=== PATIENT | female | born 1950 | race Two or more races ===

== ENCOUNTER 2017-03-17 23:17 | Emergency (ER) | payer SELFPAY ==
[~2017-03-17] VITALS: Ht 157.5 cm; Wt 73.0 kg
[~2017-03-17 23:17] MED LIST: ASPI-664 PO; ATOR40TA68 PO; BACTDS PO; CEPH-443 PO; IBUP-1542 PO; LEVO100T87 PO; METF500T PO; OLME40TA14 PO
[2017-03-17 23:25] VITALS: Ht 157.5 cm; Wt 73.0 kg
== END 2017-03-18 00:01 | disposition left against medical advice (07) ==
LOC: FTE 23:17
DX: Z53.21 Procedure and treatment not carried out due to patient leaving prior to being seen by health care provider (principal)

== ENCOUNTER 2017-03-23 14:29 | Emergency (ER) | END 2017-03-23 15:08 | disposition left against medical advice (07) ==

== ENCOUNTER 2018-05-19 17:08 | Observation (INO) | payer OTHER ==
[~2018-05-19] VITALS: Ht 152.4 cm; Wt 72.0 kg
[~2018-05-19 17:08] MED LIST changes: +ASPI-1046 PO; -ASPI-664 PO; +LEVO100T8 PO; -LEVO100T87 PO; +OLME40TA13 PO; -OLME40TA14 PO
--- NOTE | 2018-05-19 23:56 | ERD ---
ER Documentation Chief Complaint Chief Complaint MD referral: mid chest heaviness, mild SOB, L scalpular pain. HPI This is a 67-year-old female who is here for chest pain and shortness of breath. Patient saw her primary care physician was sent here because she is having gradual worsening over the past month of dyspnea on exertion as well as orthopnea and she is also having some mid chest heaviness with pain in her left shoulder blade off and on over the past couple of days. No pain now. Patient denies having diabetes or hypertension and has been in relatively good health as of late ROS All systems reviewed and are negative except as per history of present illness. Medications Home Meds Active Scripts Sulfamethoxazole-Trimethoprim* (Bactrim* DS) 800-160 Mg Tab, 1 TAB PO BID for 10 Days, TAB Prov:ELHAM ROLLINS MD 11/27/14 Cephalexin* (Keflex*) 500 Mg Capsule, 500 MG PO QID for 10 Days, CAP Prov:ELHAM ROLLINS MD 11/27/14 Ibuprofen* (Motrin*) 600 Mg Tab, 600 MG PO Q6, #14 TAB Prov:ELHAM ROLLINS MD 11/27/14 Reported Medications Atorvastatin* (Atorvastatin*) 40 Mg Tablet, 40 MG PO HS, TAB 05/29/14 Metformin Hcl (Glucophage) 500 Mg Tablet, 850 MG PO BID, TAB 03/31/14 Olmesartan Medoxomil (Benicar) 40 Mg Tablet, 40 MG PO DAILY, TAB 03/30/14 Aspirin* (Aspirin* (EC)) 81 Mg Tablet.dr, 81 MG PO DAILY, TAB 03/30/14 Levothyroxine Sodium* (Levothyroxine Sodium*) 100 Mcg Tablet, 100 MCG PO DAILY, TAB 03/30/14 Allergies Allergies: Coded Allergies: No Known Allergy (Unverified , 03/17/17) PMhx/Soc History of Surgery: No Anesthesia Reaction: No Hx Neurological Disorder: No Hx Respiratory Disorders: No Hx Cardiac Disorders: Yes (HTN;Heart Murmur;Hyperlipidemia) Hx Psychiatric Problems: No Hx Miscellaneous Medical Probl: Yes (Thyroid Issues;DM) Hx Alcohol Use: No Hx Substance Use: No Hx Tobacco Use: No FmHx Family History: No coronary disease Physical Exam Vitals Vital Signs Date Temp Pulse Resp B/P (MAP) Pulse Ox O2 O2 Flow FiO2 Time Delivery Rate 05/19/18 67 16 132/78 96 Room Air 23:44 (96) 05/19/18 97.4 67 22 143/72 97 23:20 (95) 05/19/18 97.8 61 22 157/72 95 17:30 (100) Physical Exam Const: Well-developed, well-nourished Head: Atraumatic, normocephalic Eyes: Normal Conjunctiva, PERRLA, EOMI, normal sclera, no nystagmus ENT: Normal External Ears, Nose and Mouth, moist mucus membranes. Neck: Full range of motion. No meningismus, no lymphadenopathy. Resp: Some mild bibasilar rhonchi] Cardio: Regular rate and rhythm, no murmurs, S1 S2 present Abd: Soft, non tender x 4, non distended. Normal bowel sounds, no guarding or rebound, no pulsitile abdominal masses or bruits Skin: No petechiae or rashes, no ecchymosis , no maculopapular rash Back: No midline or flank tenderness Ext: No cyanosis, or edema, FROM x 4, normal inspection, neurovascularly intact x 4 Neur: Awake and alert, STR 5/5 x 4, sensation intact x 4, no focal findings, cerebellum intact Psych: Normal Mood and Affect Result Diagram: 05/19/18705/19/187 Results 24 hrs Laboratory Tests Test 05/19/18 00:08 White Blood Count 7.4 10^3/ul Red Blood Count 4.58 10^6/ul Hemoglobin 14.3 g/dl Hematocrit 42.7 % Mean Corpuscular Volume 93.2 fl Mean Corpuscular Hemoglobin 31.2 pg Mean Corpuscular Hemoglobin Concent 33.5 g/dl Red Cell Distribution Width 13.0 % Platelet Count 221 10^3/UL Mean Platelet Volume 10.1 fl Immature Granulocytes % 0.500 % Neutrophils % 54.5 % Lymphocytes % 33.3 % Monocytes % 9.9 % Eosinophils % 1.4 % Basophils % 0.4 % Nucleated Red Blood Cells % 0.0 /100WBC Immature Granulocytes # 0.040 10^3/ul Neutrophils # 4.0 10^3/ul Lymphocytes # 2.5 10^3/ul Monocytes # 0.7 10^3/ul Eosinophils # 0.1 10^3/ul Basophils # 0.0 10^3/ul Nucleated Red Blood Cells # 0.0 10^3/ul Sodium Level 142 mmol/L Potassium Level 4.0 mmol/L Chloride Level 104 mmol/L Carbon Dioxide Level 29 mmol/L Anion Gap 9 Blood Urea Nitrogen 12 mg/dl Creatinine 0.72 mg/dl Est Glomerular Filtrat Rate mL/min > 60 mL/min Glucose Level 111 mg/dl Calcium Level 9.3 mg/dl Total Bilirubin 0.3 mg/dl Direct Bilirubin 0.00 mg/dl Indirect Bilirubin 0.3 mg/dl Aspartate Amino Transf (AST/SGOT) 53 IU/L Alanine Aminotransferase (ALT/SGPT) 41 IU/L Alkaline Phosphatase 161 IU/L Troponin I < 0.012 ng/ml B-Type Natriuretic Peptide 298 PG/ML Total Protein 8.0 g/dl Albumin 4.3 g/dl Globulin 3.70 g/dl Albumin/Globulin Ratio 1.16 Procedures/MDM MR #: [id number] DOS: 05/19/18 2355 Ordering MD: MANUEL VALLADARES DO Location: E/R Room/Bed: PROCEDURE: XR Chest. CLINICAL INDICATION: Chest pain. TECHNIQUE: Single frontal view of the chest. COMPARISON: Chest pain. FINDINGS: Mild cardiomegaly. Mild atelectasis at the left lung base is decreased over interval. The lungs are otherwise clear. No signs of pleural fluid or pneumot horax are seen. The osseous structures and soft tissues are unremarkable. IMPRESSION: 1. Decreased mild atelectasis at the left lung base. 2. Otherwise, the evidence for active cardiopulmonary disease. RPTAT: UU Physician Kenny Date Time Electronically viewed and signed by Physician Kenny on 05/20/2018 00:47 RS/ CC: MANUEL VALLADARES DO [id number] EKG: Rate/Rhythm: Normal Sinus Rhythm,NL intervals QRS, ST, QT: NORMAL ID, QRS, QT] Impression: NORMAL EKG Cardiac Admit MDM: Patient's symptoms are concerning for cardiac cause will requ mario inpatient workup and continuous monitoring. Further w/u for ischemia, arrhythmia, PE or dissection will be deferred to the inpatient team. Departure Diagnosis: Primary Impression: Shortness of breath Additional Impression: Chest pain Chest pain type: unspecified Qualified Codes: R07.9 - Chest pain, unspecified Condition: Stable MANUEL VALLADARES DO May 19, 2018 23:56
[2018-05-20] VITALS (9 sets, daily range): BP systolic 104–154; BP diastolic 53–82; PULSE 55–63; RESP 18–20; Ht 152.4 cm; Wt 72.0 kg
[2018-05-20] MEDS ORDERED: ACETAMINOPHEN 325 MG TAB PO PRN ×2 (02:00→05:00)
[2018-05-20] MEDS ORDERED: ONDANSETRON 4 MG INJ IV PRN ×2 (02:00→05:00)
[2018-05-20] MEDS ORDERED: NACL 0.9% 3 ML SYG IV SCH (05:00)
[2018-05-20] MEDS ORDERED: NITROGLYCERIN (SL) 0.4 MG TAB SL PRN (05:00)
[2018-05-20] MEDS ORDERED: ALBUTEROL/IPRATROPIUM (NEB) 3 ML AMP HHN PRN (05:00)
[2018-05-20] MEDS ORDERED: GLUCAGON 1 MG INJ IM PRN (06:00)
[2018-05-20] MEDS ORDERED: DEXTROSE 50% 50 ML SYRINGE IV PRN ×2 (06:00)
[2018-05-20] MEDS ORDERED: GLUCOSE GEL 15 GRAM TUBE BUCCAL PRN (06:00)
[2018-05-20] MEDS ORDERED: GLUCOSE GEL 15 GRAM TUBE PO PRN ×2 (06:00)
--- NOTE | 2018-05-20 06:20 | HP ---
Date/Time of Note Date/Time of Note DATE: 05/20/18 TIME: 06:15 Assessment/Plan VTE Prophylaxis Pharmacological prophylaxis: heparin Lines/Catheters IV Catheter Type (from Nrsg): Saline Lock Assessment/Plan Assessment/Plan 1. Chest pain/shortness of breath: Rule out ACS -Supplemental oxygen, aspirin, as needed nitro and morphine. Beta-milly if he art rate allows -2D echo and cardiology consult -Trend troponin 2. Hypertension: Adjust BP meds as needed 3. Type II diabetes: Continue metformin 4. Hypothyroidism: Check TSH. Continue Synthroid 5. Dyslipidemia: Continue statin Result Diagram: 05/20/18 0520 05/19/18 0008 Results 24hrs Laboratory Tests Test 05/20/18 02:52 05/20/18 05:20 Bedside Glucose 114 White Blood Count 7.3 Red Blood Count 4.55 Hemoglobin 14.1 Hematocrit 42.0 Mean Corpuscular Volume 92.3 Mean Corpuscular Hemoglobin 31.0 Mean Corpuscular Hemoglobin Concent 33.6 Red Cell Distribution Width 13.1 Platelet Count 219 Mean Platelet Volume 10.6 H Immature Granulocytes % 0.500 H Neutrophils % 55.3 Lymphocytes % 34.3 Monocytes % 7.6 Eosinophils % 1.8 Basophils % 0.5 Nucleated Red Blood Cells % 0.0 Immature Granulocytes # 0.040 H Neutrophils # 4.1 Lymphocytes # 2.5 Monocytes # 0.6 Eosinophils # 0.1 Basophils # 0.0 Nucleated Red Blood Cells # 0.0 HPI/ROS Admit Date/Time Admit Date/Time May 20, 2018 at 01:43 Hx of Present Illness This is a 61-year-old female with a history of hypertension, diabetes, dyslipidemia, hypothyroidism, ?Redding's palsy. Patient presents the ER for evalu ation of shortness of breath and chest pain. Symptom has been progressively getting worse for the past several weeks. Chest pain described as tightness/pressure like. Shortness of breath is exertional for the most part. She was evaluated by PCP who instructed her to go to the ER. Lung presented to ER, vitals were stable. First troponin is negative. EKG without ST-T wave abnormalities. PMH/Family/Social Past Medical History Medications Current Medications Ondansetron HCl (Zofran Inj) 4 mg ER BRIDGE PRN IV NAUSEA/VOMITING; Start 05/20/18 at 02:00; Stop 05/21/18 at 01:59 Acetaminophen (Tylenol Tab) 650 mg ER BRIDGE PRN PO .MILD PAIN 1-3 OR TEMP; Start 05/20/18 at 02:00; Stop 05/21/18 at 01:59 IV Flush (NS 3 ml) 3 ml PER PROTOCOL IV ; Start 05/20/18 at 05:00 Ondansetron HCl (Zofran Inj) 4 mg Q6H PRN IV NAUSEA/VOMITING; Start 05/20/18 at 05:00 Nitroglycerin (Nitroglycerin (Sl Tab) 0.4 Mg) 1 tab Q5M PRN SL .CHEST PAIN; Start 05/20/18 at 05:00 Acetaminophen (Tylenol Tab) 650 mg Q6H PRN PO .PAIN 1-3 OR TEMP; Start 05/20/18 at 05:00 Heparin Sodium (Porcine) (Heparin (5000 Units/1ml)) 5,000 unit Q12 SC ; Start 05/20/18 at 09:00 Albuterol/ Ipratropium (Duoneb) 3 ml Q2H RESP THERAPY PRN HHN SHORTNESS OF BREATH; Start 05/20/18 at 05:00 Aspirin (Halfprin) 81 mg DAILY PO ; Start 05/20/18 at 09:00 Atorvastatin Calcium (Lipitor) 40 mg HS PO ; Start 05/20/18 at 21:00 Levothyroxine Sodium (Synthroid) 100 mcg AC BREAKFAST PO ; Start 05/20/18 at 07:00 Metformin HCl (Glucophage) 500 mg BID WITH MEALS PO ; Start 05/20/18 at 08:00 Trimethoprim/ Sulfamethoxazole (Bactrim (Ds)) 1 tab BID PO ; Start 05/20/18 at 09:00 Losartan Potassium (Cozaar) 100 mg DAILY PO ; Start 05/20/18 at 09:00 Miscellaneous Information 1 ea NOTE XX ; Start 05/20/18 at 06:00 Glucose (Glutose) 15 gm Q15M PRN PO DECREASED GLUCOSE; Start 05/20/18 at 06:00 Glucose (Glutose) 22.5 gm Q15M PRN PO DECREASED GLUCOSE; Start 05/20/18 at 06:00 Dextrose (D50w Syringe) 25 ml Q15M PRN IV DECREASED GLUCOSE; Start 05/20/18 at 06:00 Dextrose (D50w Syringe) 50 ml Q15M PRN IV DECREASED GLUCOSE; Start 05/20/18 at 06:00 Glucagon (Glucagen) 1 mg Q15M PRN IM DECREASED GLUCOSE; Start 05/20/18 at 06:00 Glucose (Glutose) 15 gm Q15M PRN BUCCAL DECREASED GLUCOSE; Start 05/20/18 at 06:00 Coded Allergies: No Known Allergy (Unverified , 03/17/17) Social History Smoking Status: Never smoker Exam/Review of Systems Vital Signs Vitals Vital Signs Date Temp Pulse Resp B/P (MAP) Pulse Ox O2 O2 Flow FiO2 Time Delivery Rate 05/20/18 55 04:00 05/20/18 97.6 20 154/82 91 04:00 (106) 05/19/18 Room Air 23:44 Exam Exam Past Surgical History Past Surgical Hx: other (see hpi) Family History Significant Family History: no pertinent family hx Social History Alcohol Use: other Smoking Status: Unknown if ever smoked Drug Use: none, other Exam Constitutional: other (no acute distress) Head: normocephalic, atraumatic Eyes: PERRL Respiratory: clear to auscultation Cardiovascular: regular rate and rhythm Gastrointestinal: soft DIMPLE LOMAS MD May 20, 2018 06:20
[2018-05-20] MEDS: LEVOTHYROXINE 100 MCG TAB PO SCH (07:01)
[2018-05-20] MEDS ORDERED: metFORMIN 500 MG TAB PO SCH (08:00)
[2018-05-20] MEDS ORDERED: TRIMETHOPRIM/SULFAMETHOX (DS) TAB PO SCH (09:00)
[2018-05-20] MEDS ORDERED: LISINOPRIL 10 MG TAB PO SCH (09:00)
[2018-05-20] MEDS: LOSARTAN 50 MG TAB PO SCH (09:30)
[2018-05-20] MEDS: ASPIRIN (EC) 81 MG TAB PO SCH (09:31)
[2018-05-20] MEDS: HEPARIN 5,000 UNIT/1 ML VIAL SC SCH ×2 (09:37→20:26)
--- NOTE | 2018-05-20 15:54 | PN ---
Date/Time of Note Date/Time of Note DATE: 05/20/18 TIME: 15:53 Assessment/Plan VTE Prophylaxis Risk score (from Nsg)>0 risk: 2 SCD applied (from Nsg): Yes SCD contraindicated: low risk/ambulating Pharmacological prophylaxis: LMWH Lines/Catheters IV Catheter Type (from Nrsg): Saline Lock Assessment/Plan Hospital Course Hospitalist coverage A/P 1. Chest pain ro ACS. Consider stress test tomorrow 2. Type 2 diabetes 3. Hypertension 4. Dyslipidemia 5. Abnl EKG/ poor R wave progression through anteroseptal leads Subjective events noted Objective: Sinus rhythm Physical exam No pallor JVD adenopathy Regular Clear nontender Bs+ nt nd no RRG No edema/redness Result Diagram: 05/20/1851905/20/18 0520 Results 24hrs Laboratory Tests Test 05/20/18 02:52 05/20/18 05:20 05/20/18 10:23 Bedside Glucose 114 White Blood Count 7.3 Red Blood Count 4.55 Hemoglobin 14.1 Hematocrit 42.0 Mean Corpuscular Volume 92.3 Mean Corpuscular Hemoglobin 31.0 Mean Corpuscular Hemoglobin Concent 33.6 Red Cell Distribution Width 13.1 Platelet Count 219 Mean Platelet Volume 10.6 H Immature Granulocytes % 0.500 H Neutrophils % 55.3 Lymphocytes % 34.3 Monocytes % 7.6 Eosinophils % 1.8 Basophils % 0.5 Nucleated Red Blood Cells % 0.0 Immature Granulocytes # 0.040 H Neutrophils # 4.1 Lymphocytes # 2.5 Monocytes # 0.6 Eosinophils # 0.1 Basophils # 0.0 Nucleated Red Blood Cells # 0.0 Sodium Level 143 Potassium Level 4.1 Chloride Level 104 Carbon Dioxide Level 29 Anion Gap 10 Blood Urea Nitrogen 10 Creatinine 0.65 Est Glomerular Filtrat Rate mL/min > 60 Glucose Level 102 Hemoglobin A1c 6.1 H Calcium Level 8.9 Magnesium Level 2.1 Total Bilirubin 0.2 Direct Bilirubin 0.00 Indirect Bilirubin 0.2 Aspartate Amino Transf (AST/SGOT) 54 H Alanine Aminotransferase (ALT/SGPT) 43 Alkaline Phosphatase 147 H Creatine Kinase 68 69 Creatine Kinase Index 1.3 1.1 Creatinine Kinase MB (Mass) 0.88 0.76 Troponin I 0.013 < 0.012 Total Protein 7.8 Albumin 4.1 Globulin 3.70 H Albumin/Globulin Ratio 1.10 Triglycerides Level 129 Cholesterol Level 197 LDL Cholesterol, Calculated 117 HDL Cholesterol 54 Cholesterol/HDL Ratio 3.6 Thyroid Stimulating Hormone (TSH) 2.690 Exam/Review of Systems Exam Vitals Vital Signs Date Temp Pulse Resp B/P (MAP) Pulse Ox O2 O2 Flow FiO2 Time Delivery Rate 05/20/18 98.8 55 18 105/53 95 Room Air 15:22 (70) Intake and Output 05/19/18 05/19/18 05/20/18 1515:00 23:00 07:00 IntakeIntake Total 240 ml BalanceBalance 240 ml Results Results 24hrs Laboratory Tests Test 05/20/18 02:52 05/20/18 05:20 05/20/18 10:23 Bedside Glucose 114 White Blood Count 7.3 Red Blood Count 4.55 Hemoglobin 14.1 Hematocrit 42.0 Mean Corpuscular Volume 92.3 Mean Corpuscular Hemoglobin 31.0 Mean Corpuscular Hemoglobin Concent 33.6 Red Cell Distribution Width 13.1 Platelet Count 219 Mean Platelet Volume 10.6 H Immature Granulocytes % 0.500 H Neutrophils % 55.3 Lymphocytes % 34.3 Monocytes % 7.6 Eosinophils % 1.8 Basophils % 0.5 Nucleated Red Blood Cells % 0.0 Immature Granulocytes # 0.040 H Neutrophils # 4.1 Lymphocytes # 2.5 Monocytes # 0.6 Eosinophils # 0.1 Basophils # 0.0 Nucleated Red Blood Cells # 0.0 Sodium Level 143 Potassium Level 4.1 Chloride Level 104 Carbon Dioxide Level 29 Anion Gap 10 Blood Urea Nitrogen 10 Creatinine 0.65 Est Glomerular Filtrat Rate mL/min > 60 Glucose Level 102 Hemoglobin A1c 6.1 H Calcium Level 8.9 Magnesium Level 2.1 Total Bilirubin 0.2 Direct Bilirubin 0.00 Indirect Bilirubin 0.2 Aspartate Amino Transf (AST/SGOT) 54 H Alanine Aminotransferase (ALT/SGPT) 43 Alkaline Phosphatase 147 H Creatine Kinase 68 69 Creatine Kinase Index 1.3 1.1 Creatinine Kinase MB (Mass) 0.88 0.76 Troponin I 0.013 < 0.012 Total Protein 7.8 Albumin 4.1 Globulin 3.70 H Albumin/Globulin Ratio 1.10 Triglycerides Level 129 Cholesterol Level 197 LDL Cholesterol, Calculated 117 HDL Cholesterol 54 Cholesterol/HDL Ratio 3.6 Thyroid Stimulating Hormone (TSH) 2.690 Medications Medication Current Medications Ondansetron HCl (Zofran Inj) 4 mg ER BRIDGE PRN IV NAUSEA/VOMITING; Start 05/20/18 at 02:00; Stop 05/21/18 at 01:59 Acetaminophen (Tylenol Tab) 650 mg ER BRIDGE PRN PO .MILD PAIN 1-3 OR TEMP; Start 05/20/18 at 02:00; Stop 05/21/18 at 01:59 IV Flush (NS 3 ml) 3 ml PER PROTOCOL IV ; Start 05/20/18 at 05:00 Ondansetron HCl (Zofran Inj) 4 mg Q6H PRN IV NAUSEA/VOMITING; Start 05/20/18 at 05:00 Nitroglycerin (Nitroglycerin (Sl Tab) 0.4 Mg) 1 tab Q5M PRN SL .CHEST PAIN; Start 05/20/18 at 05:00 Acetaminophen (Tylenol Tab) 650 mg Q6H PRN PO .PAIN 1-3 OR TEMP; Start 05/20/18 at 05:00 Heparin Sodium (Porcine) (Heparin (5000 Units/1ml)) 5,000 unit Q12 SC Last administered on 05/20/18at 09:37; Admin Dose 5,000 UNIT; Start 05/20/18 at 09:00 Albuterol/ Ipratropium (Duoneb) 3 ml Q2H RESP THERAPY PRN HHN SHORTNESS OF BREATH; Start 05/20/18 at 05:00 Aspirin (Halfprin) 81 mg DAILY PO Last administered on 05/20/18at 09:31; Admin Dose 81 MG; Start 05/20/18 at 09:00 Atorvastatin Calcium (Lipitor) 40 mg HS PO ; Start 05/20/18 at 21:00 Levothyroxine Sodium (Synthroid) 100 mcg AC BREAKFAST PO Last administered on 05/20/18at 07:01; Admin Dose 100 MCG; Start 05/20/18 at 07:00 Losartan Potassium (Cozaar) 100 mg DAILY PO Last administered on 05/20/18at 09:30; Admin Dose 100 MG; Start 05/20/18 at 09:00 Miscellaneous Information 1 ea NOTE XX ; Start 05/20/18 at 06:00 Glucose (Glutose) 15 gm Q15M PRN PO DECREASED GLUCOSE; Start 05/20/18 at 06:00 Glucose (Glutose) 22.5 gm Q15M PRN PO DECREASED GLUCOSE; Start 05/20/18 at 06:00 Dextrose (D50w Syringe) 25 ml Q15M PRN IV DECREASED GLUCOSE; Start 05/20/18 at 06:00 Dextrose (D50w Syringe) 50 ml Q15M PRN IV DECREASED GLUCOSE; Start 05/20/18 at 06:00 Glucagon (Glucagen) 1 mg Q15M PRN IM DECREASED GLUCOSE; Start 05/20/18 at 06:00 Glucose (Glutose) 15 gm Q15M PRN BUCCAL DECREASED GLUCOSE; Start 05/20/18 at 06:00 DUC MILLS MD May 20, 2018 15:54
--- NOTE | 2018-05-20 19:02 | RADRPT ---
Echocardiogram Report Patient Name: MEENAKSHI MICHAUDPatient ID: [id number] : 1950 (67y 6m)Study Date: 05/20/2018 8:59:25 AM Gender: FAccession #: [id number] Tech: Shaggy Nunez [facility] Location: 603-A Ref.Physician: DIMPLE LOMAS Height(Cm): BSA: Weight(Kg): Quality: AdequateAccount #: Procedures: Echocardiographic Report: Transthoracic echocardiogram with complete 2D, M-Mode, and doppler examination. Indications: Congestive Heart Failure. Measurements: 2D/M Mode Doppler Measurement Value Normal Range Measurement Value Normal Range LVIDd 2D 3.7 [ 3.8 - 5.2 ] cm AV Peak David 1.4 [ 100.0 - 170.0 ] cm/sec LVIDs 2D 2.5 [ 2.2 - 3.5 ] cm AV Peak PG 7.0 [ 2.0 - 9.0 ] mmHg LVPWd 2D 1.6 [ 0.6 - 0.9 ] cm LVOT Peak David 1.3 [ 70.0 - 110.0 ] cm/sec IVSd 2D 1.6 [ 0.6 - 0.9 ] cm LVOT Peak PG 6.0 [ 2.0 - 6.0 ] mmHg IVS/LVPW 2D 1.0 ratio MV E Peak David 0.9 [ 60.0 - 130.0 ] cm/sec AoR Diam 2D 2.3 [ 2.3 - 3.1 ] cm MV A Peak David 1.8 [ 100.0 - 120.0 ] cm/sec LA/Ao 2D 1 ratio MV E/A 0.5 [ 0.8 - 1.5 ] ratio LA Dimen 2D 3.4 [ 2.7 - 3.8 ] cm MV Decel Time 106 [ 104 - 258 ] msec Lat E` David 0.2 [ 10.0 - 15.0 ] cm/sec Med E` David 0.1 cm/sec MV E/A 0.5 [ 0.8 - 1.5 ] ratio RA Pressure 3.0 mmHg Findings: Left Ventricle: Normal left ventricular systolic function. Normal left ventricular cavity size. Moderate concentric left ventricular hypertrophy. Ejection fraction is visually estimated at 60-65 %. Tissue Doppler/Mitral Doppler indices are consistent with pseudonormalization with mildly elevated left atrial pressure (Stage II diastolic dysfunction). Right Ventricle: Normal right ventricular size. Normal right ventricular systolic function. Left Atrium: The left atrium is normal in size. Right Atrium: The right atrium is normal in size. Mitral Valve: Moderate mitral leaflet calcification. Moderate mitral annular calcification. Mild mitral valve regurgitation. Mild mitral stenosis. Mitral valve Max Velocity 2.00 m/sec. MaxPG 16.00 mmHg. MeanPG 5.00 mmHg. Aortic Valve: No significant aortic stenosis or insufficiency. Aortic cusps appear mildly calcified. Tricuspid Valve: Normal appearance of the tricuspid valve. Unable to obtain RVSP due to minimal presence of tricuspid regurgitation. Pericardium: Normal pericardium with no significant pericardial effusion. Aorta: Normal aortic root. IVC: Normal size and normal respiratory collapse consistent with normal right atrial pressure. Conclusions: Normal left ventricular systolic function. Normal left ventricular cavity size. Moderate concentric left ventricular hypertrophy. Ejection fraction is visually estimated at 60-65 %. Tissue Doppler/Mitral Doppler indices are consistent with pseudonormalization with mildly elevated left atrial pressure (Stage II diastolic dysfunction). Moderate mitral leaflet calcification. Moderate mitral annular calcification. Mild mitral valve regurgitation. Mild mitral stenosis. Mitral valve Max Velocity 2.00 m/sec. MaxPG 16.00 mmHg. MeanPG 5.00 mmHg. Normal appearance of the tricuspid valve. Unable to obtain RVSP due to minimal presence of tricuspid regurgitation. Electronically Signed By: Lester Guerrero 2018-05-20 19:01:37 PST
[2018-05-20] MEDS ORDERED: ATORVASTATIN 40 MG TAB PO SCH (21:00)
--- NOTE | 2018-05-20 22:04 | CONS ---
DATE OF ADMISSION: 05/20/2018 DATE OF CONSULTATION: 05/20/2018 REASON FOR CONSULTATION: Exertional chest pain and shortness of breath. REQUESTING PHYSICIAN: Cortez Mills from the hospitalist service. HISTORY OF PRESENT ILLNESS: Ms. Padilla is a 67-year-old female with a history of hypertension, hy pothyroidism, who initially presented to her primary care physician's office today with complaints of exertional shortness of breath and chest pain. From chart biopsy, it appears that the patient under went an EKG which revealed a trigeminy and the patient was transferred to [facility] for further evaluation and treatment. Initially upon arrival, temperature 97.8, blood pressure 150 /72, pulse 61, respiration 22, satting 95%. The patient's labs revealed white count 7.4, hemoglobin 14.3, platelet count 221. A sodium 142, potassium 4.0, creatinine 0.7, BUN 12, AST 53, ALT 41. Trop onin negative. BNP of 298. The patient's chest x-ray revealed decreased mild atelectasis of left marilynn ng base. The patient's electrocardiogram revealed sinus rhythm, rate of 84 with associated PACs in a pattern of trigeminy and possible associated sinus arrhythmia and prolonged first degree AV block. Since admit to floor, patient has had some bradycardia at 50s and stable blood pressures. Denies jr st pain, shortness breath at this time and has had a total of 3 negative troponins, ruling out for ac freddy myocardial infarction. PAST MEDICAL HISTORY: As above in HPI. MEDICATIONS CURRENTLY IN HOSPITAL: 1. Lipitor 40 at bedtime. 2. Heparin 5000 subQ q.12. 3. Aspirin 81 mg daily. 4. Losartan 100 mg daily. 5. Synthroid 100 mcg daily. 6. Nitroglycerin p.r.n. 7. Tylenol p.r.n. 8. DuoNebs p.r.n. ALLERGIES: NO KNOWN DRUG ALLERGIES. SOCIAL HISTORY: No current tobacco, ETOH or illicit drug use. FAMILY HISTORY: No sudden cardiac or early CAD. REVIEW OF SYSTEMS: As above in HPI. CONSTITUTIONAL: No fevers, chills. PULMONARY: No current shortness of breath. CARDIOVASCULAR: No current chest pain. GASTROINTESTINAL: No vomiting. GENITOURINARY: No hematuria. MUSCULOSKELETAL: Degenerative joint disease. PSYCHIATRIC: The patient has depression. NEUROLOGIC: Positive history of CVA. ENDOCRINE: Thyroid disease, no diabetes mellitus. PHYSICAL EXAMINATION: VITAL SIGNS: Temperature 97.4, blood pressure 126/88, pulse of 55, respiratory rate 18, satting 95%. GENERAL: The patient is alert, awake, in no acute distress. NECK: JVP approximately 8 to 9 cm of water. CHEST: Fair air movement throughout. HEART: She is Bradycardic, regular rhythm, normal S1, S2, I/ systolic murmur, nondisplaced PMI. ABDOMEN: Obese, soft. EXTREMITIES: No significant pitting edema, 1+ pulses bilateral posterior tibial. LABORATORIES: As above in HPI with most recently from today, sodium 142, potassium 4.1, creatinine 0 .6, BUN 10, hemoglobin A1c of 6.1. Troponin negative times total of 3. LDL 117, HDL 54. TSH of 2.6 9. White blood cell count 7.3, hemoglobin 14.1, platelet count of 219. IMAGING STUDIES: As above in HPI. No further imaging for my review at this time. ECG: As above in HPI. No further electrocardiograms for my review at this time. IMPRESSION: 1. Exertional chest pain, assess for acute coronary syndrome. 2. Angina. 3. Dyspnea on exertion, question of anginal equivalent. 4. Hypertension, under reasonable control. 5. Dyslipidemia. 6. Hypothyroidism. 7. Possible cerebrovascular accident by history. RECOMMENDATIONS: 1. At this time, would maintain the patient on telemetry monitoring to follow rhythm and rates close ly. 2. Continue the patient's current losartan for control of blood pressure and discontinue the patient 's aspirin for prophylaxis against cardiovascular events. 3. Agree with initiation of statin therapy. LDL of 117. 4. We will follow the patient's 2D echo to further assess ejection fraction, wall motion, and major abnormalities. 5. Would check serial EKGs to assess for significant ongoing changes, thus a repeat EKG in the [facility], EKG for any complaints of chest pain or change in rhythm, and given patient's ongoing symptomatol ogy, I believe the patient will benefit from further risk stratification with a stress test to take p lace in the morning. Thank you for allowing me to take part in the care of this patient. I will continue to follow very c losely with you. Further recommendations will be made as the patient progresses to her inpatient hos pital clinical course. Dictated By: MILDRED LAZO/ADI Conf#: [id number] DID#: [id number] CC: DIMPLE LOMAS MD; CORTEZ MILLS MD;*EndCC*
[2018-05-21] VITALS (10 sets, daily range): BP systolic 100–143; BP diastolic 56–79; PULSE 53–61; RESP 18–20
[2018-05-21] MEDS: LEVOTHYROXINE 100 MCG TAB PO SCH (06:59)
[2018-05-21] MEDS: LOSARTAN 50 MG TAB PO SCH (08:18)
[2018-05-21] MEDS: ASPIRIN (EC) 81 MG TAB PO SCH (08:18)
[2018-05-21] MEDS: HEPARIN 5,000 UNIT/1 ML VIAL SC SCH (08:23)
[2018-05-21] MEDS ORDERED: REGADENOSON 0.4 MG/5 ML SYG ONE (11:19)
--- NOTE | 2018-05-21 12:10 | CONS ---
Assessment/Plan Assessment/Plan Hospital Course (Demo Recall) IMPRESSION: 1. Exertional chest pain, assess for acute coronary syndrome.-neg trop x 3. 2. Angina. 3. Dyspnea on exertion, question of anginal equivalent. 4. Hypertension, under reasonable control. 5. Dyslipidemia. 6. Hypothyroidism. 7. Possible cerebrovascular accident by history. Recc: -Tele -serial ecg's -Continue losartan -Continue statin -Continue asa -Lexiscan stress test today Consultation Date/Type/Reason Admit Date/Time May 20, 2018 at 01:43 Initial Consult Date 05/20/18 Type of Consult Cardiology Reason for Consultation Chest pain Requesting Provider: DUC MILLS MD Date/Time of Note DATE: 05/21/18 TIME: 12:04 Exam/Review of Systems Vital Signs Vitals Vital Signs Date Temp Pulse Resp B/P (MAP) Pulse Ox O2 O2 Flow FiO2 Time Delivery Rate 05/21/18 53 08:01 05/21/18 98.4 19 128/61 95 07:32 (83) 05/20/18 Room Air 15:22 Intake and Output 05/20/18 05/20/18 05/21/18 1515:00 23:00 07:00 IntakeIntake Total 760 ml 600 ml BalanceBalance 760 ml 600 ml Exam Exam Review of Systems: CONSTITUTIONAL: No fevers, chills. PULMONARY: No sob CARDIOVASCULAR: No chest pain/palpitations GASTROINTESTINAL: No nausea/vomiting. GENITOURINARY: No hematuria/dysuria. MUSCULOSKELETAL: No myagias/arthalgias. PSYCHIATRIC: The patient denies depression. NEUROLOGIC: No weakness Constitutional: alert Psych: no complaints Head: normocephalic ENMT: mucosa pink and moist Neck: supple, jvd (9 cm water) Respiratory: diminished breath sounds (at basese/b) Cardiovascular: regular rate and rhythm Gastrointestinal: soft, non-tender Musculoskeletal: muscle tone (normal) Extremities: edema (none) Neurological: other (no focal deficits) Labs Result Diagram: 05/21/1852505/21/18525 Results 24hrs Laboratory Tests Test 05/21/18 05:26 05/21/18 05:27 White Blood Count 7.2 Red Blood Count 4.61 Hemoglobin 14.4 Hematocrit 43.4 Mean Corpuscular Volume 94.1 Mean Corpuscular Hemoglobin 31.2 Mean Corpuscular Hemoglobin Concent 33.2 Red Cell Distribution Width 13.2 Platelet Count 220 Mean Platelet Volume 10.8 H Immature Granulocytes % 0.400 Neutrophils % 52.4 Lymphocytes % 35.0 Monocytes % 9.8 Eosinophils % 1.8 Basophils % 0.6 Nucleated Red Blood Cells % 0.0 Immature Granulocytes # 0.030 Neutrophils # 3.8 Lymphocytes # 2.5 Monocytes # 0.7 Eosinophils # 0.1 Basophils # 0.0 Nucleated Red Blood Cells # 0.0 Prothrombin Time 12.9 Prothrombin Time Ratio 1.0 INR International Normalized Ratio 0.96 Sodium Level 142 Potassium Level 4.2 Chloride Level 104 Carbon Dioxide Level 30 Anion Gap 8 Blood Urea Nitrogen 17 Creatinine 0.82 Est Glomerular Filtrat Rate mL/min > 60 Glucose Level 104 Calcium Level 9.4 Phosphorus Level 6.5 H Magnesium Level 2.2 Triglycerides Level 242 H Cholesterol Level 188 LDL Cholesterol, Calculated 86 HDL Cholesterol 54 Cholesterol/HDL Ratio 3.4 Medications Medications Current Medications IV Flush (NS 3 ml) 3 ml PER PROTOCOL IV ; Start 05/20/18 at 05:00 Ondansetron HCl (Zofran Inj) 4 mg Q6H PRN IV NAUSEA/VOMITING; Start 05/20/18 at 05:00 Nitroglycerin (Nitroglycerin (Sl Tab) 0.4 Mg) 1 tab Q5M PRN SL .CHEST PAIN; Start 05/20/18 at 05:00 Acetaminophen (Tylenol Tab) 650 mg Q6H PRN PO .PAIN 1-3 OR TEMP; Start 05/20/18 at 05:00 Heparin Sodium (Porcine) (Heparin (5000 Units/1ml)) 5,000 unit Q12 SC Last administered on 05/21/18at 08:23; Admin Dose 5,000 UNIT; Start 05/20/18 at 09:00 Albuterol/ Ipratropium (Duoneb) 3 ml Q2H RESP THERAPY PRN HHN SHORTNESS OF BREATH; Start 05/20/18 at 05:00 Aspirin (Halfprin) 81 mg DAILY PO Last administered on 05/21/18at 08:18; Admin D ose 81 MG; Start 05/20/18 at 09:00 Atorvastatin Calcium (Lipitor) 40 mg HS PO Last administered on 05/20/18at 20:20; Admin Dose 40 MG; Start 05/20/18 at 21:00 Levothyroxine Sodium (Synthroid) 100 mcg AC BREAKFAST PO Last administered on 05/20/18at 07:01; Admin Dose 100 MCG; Start 05/20/18 at 07:00 Losartan Potassium (Cozaar) 100 mg DAILY PO Last administered on 05/21/18at 08:18; Admin Dose 100 MG; Start 05/20/18 at 09:00 Miscellaneous Information 1 ea NOTE XX ; Start 05/20/18 at 06:00 Glucose (Glutose) 15 gm Q15M PRN PO DECREASED GLUCOSE; Start 05/20/18 at 06:00 Glucose (Glutose) 22.5 gm Q15M PRN PO DECREASED GLUCOSE; Start 05/20/18 at 06:00 Dextrose (D50w Syringe) 25 ml Q15M PRN IV DECREASED GLUCOSE; Start 05/20/18 at 06:00 Dextrose (D50w Syringe) 50 ml Q15M PRN IV DECREASED GLUCOSE; Start 05/20/18 at 06:00 Glucagon (Glucagen) 1 mg Q15M PRN IM DECREASED GLUCOSE; Start 05/20/18 at 06:00 Glucose (Glutose) 15 gm Q15M PRN BUCCAL DECREASED GLUCOSE; Start 05/20/18 at 06:00 MILDRED DAVE May 21, 2018 12:10
--- NOTE | 2018-05-21 13:27 | CARRPT ---
DATE OF PROCEDURE: 05/21/2018 LEXISCAN CARDIOLITE STRESS TEST, LEXISCAN PORTION INDICATION: Chest pain, assess for ischemia. BASELINE VITAL SIGNS AND ELECTROCARDIOGRAM: Pulse 50, blood pressure 132/66. Electrocardiogram reveals a sinus rhythm, rate 53, first degree AV block, inferior T-wave inversion. PROCEDURE: The patient underwent standard Lexiscan infusion protocol over 10 seconds with radiolabled tracer. The patient's test was stopped due to completion of protocol. Maximal achieved blood pressure during the test 121/69. Maximal heart rate during the test 78. ELECTROCARDIOGRAM FINDINGS: The patient did not develop any new Lexiscan- induced ST or T-wave changes from baseline abnormalities or documented PVCs. SYMPTOMS: Patient no complaints of chest pain or shortness of breath during stress testing. IMPRESSION: 1. No Lexiscan-induced ST or T-wave changes from baseline abnormalities that are diagnostic for ischemia. 2. No complaints of chest pain or shortness of breath during stress test. 3. No documented premature ventricular contractions during stress test. 4. Report of nuclear images to follow in separate dictation. Dictated By: MILDRED LAZO/ADI Conf#: [id number] DID#: [id number] CC: DIMPLE LOMAS MD; DUC MILLS MD;*uJliaCC* MTDWendie
--- NOTE | 2018-05-21 15:44 | PDOCDIS ---
Discharge Instructions CONDITION [id number] Patient Condition: [id number] Good HOME CARE INSTRUCTIONS: [id number] Diet Instructions: [id number] Activity Restrictions: [id number] Slowly Increase Activity Avoid heavy lifting FOLLOW UP/APPOINTMENTS Follow-up Plan appt PCP 1wk Dr Guerrero 1-2wks DUC MILLS MD May 21, 2018 15:44
[2018-05-21] MEDS ORDERED: PANT40TA3 PO (15:46)
[2018-05-21] MEDS ORDERED: ACET325T33 PO (15:46)
--- NOTE | 2018-05-21 18:29 | DS ---
Date/Time of Note Date/Time of Note DATE: 05/21/18 TIME: 18:25 Discharge Summary Admission/Discharge Info Admit Date/Time May 20, 2018 at 01:43 Discharge Date/Time May 21, 2018 at 18:00 Patient Condition: Good Procedures Chest x-ray: No acute process 2D ECHO Conclusions: Normal left ventricular systolic function. Normal left ventricular cavity size. Moderate concentric left ventricular hypertrophy. Ejection fraction is visually estimated at 60-65 %. Tissue Doppler/Mitral Doppler indices are consistent with pseudonormalization with mildly elevated left atrial pressure (Stage II diastolic dysfunction). Moderate mitral leaflet calcification. Moderate mitral annular calcification. Mild mitral valve regurgitation. Mild mitral stenosis. Mitral valve Max Velocity 2.00 m/sec. MaxPG 16.00 mmHg. MeanPG 5.00 mmHg. Normal appearance of the tricuspid valve. Unable to obtain RVSP due to minimal presence of tricuspid regurgitation. Electronically Signed By: Lester Guerrero Labs: No acute process troponin is negative Stress test IMPRESSION: 1. Normal study with no evidence of perfusion defects or wall motion abnormalities. 2. The left ventricle ejection fraction at stress is greater than 70%. Hx of Present Illness 67-year-old F admitted with chest pain Hospital Course Hospitalist coverage/hospital course A/P 1. Chest pain rule out for ACS via enzymes. stress test is negative, stable dc home. Try Protonix 2. Type 2 diabetes 3. Hypertension 4. Dyslipidemia 5. Abnl EKG/ poor R wave progression through anteroseptal leads Home Meds Active Scripts Pantoprazole* (Protonix*) 40 Mg Tablet.dr, 40 MG PO BID for 30 Days, #60 TAB otc Omeprazole twice daily for 1 month Prov:DUC MILLS MD 05/21/18 Acetaminophen* (Tylenol*) 325 Mg Tablet, 650 MG PO Q6H PRN for .PAIN 1-3 OR TEMP for 1 Day, TAB Prov:DUC MILLS MD 05/21/18 Sulfamethoxazole-Trimethoprim* (Bactrim* DS) 800-160 Mg Tab, 1 TAB PO BID for 10 Days, TAB Prov:ELHAM ROLLINS MD 11/27/14 Reported Medications Atorvastatin* (Atorvastatin*) 40 Mg Tablet, 40 MG PO HS, TAB 05/29/14 Metformin Hcl (Glucophage) 500 Mg Tablet, 850 MG PO BID, TAB 1/8/15 Olmesartan Medoxomil (Benicar) 40 Mg Tablet, 40 MG PO DAILY, TAB 03/30/14 Aspirin* (Aspirin* (EC)) 81 Mg Tablet.dr, 81 MG PO DAILY, TAB 03/30/14 Levothyroxine Sodium* (Levothyroxine Sodium*) 100 Mcg Tablet, 100 MCG PO DAILY, TAB 03/30/14 Discontinued Scripts Cephalexin* (Keflex*) 500 Mg Capsule, 500 MG PO QID for 10 Days, CAP Prov:ELHAM ROLLINS MD 11/27/14 Ibuprofen* (Motrin*) 600 Mg Tab, 600 MG PO Q6, #14 TAB Prov:ELHAM ROLLINS MD 11/27/14 Follow-up Plan appt PCP 1wk Dr Guerrero 1-2wks Primary Care Provider Not On Staff Doctor Time spent on discharge: < 30 minutes Pending Labs Laboratory Tests Test 05/21/18 05:26 05/21/18 05:27 White Blood Count 7.2 10^3/ul (4.8-10.8) Red Blood Count 4.61 10^6/ul (4.20-5.40) Hemoglobin 14.4 g/dl (12.0-16.0) Hematocrit 43.4 % (37.0-47.0) Mean Corpuscular Volume 94.1 fl (82.0-101.0) Mean Corpuscular Hemoglobin 31.2 pg (29.0-33.0) Mean Corpuscular 33.2 g/dl (32.0-37.0) Hemoglobin Concent Red Cell Distribution Width 13.2 % (11.5-14.5) Platelet Count 220 10^3/UL (140-415) Mean Platelet Volume 10.8 fl (7.4-10.4) Immature Granulocytes % 0.400 % (0.001-0.429) Neutrophils % 52.4 % (39.0-77.0) Lymphocytes % 35.0 % (15.0-51.0) Monocytes % 9.8 % (0.0-11.0) Eosinophils % 1.8 % (0.0-7.0) Basophils % 0.6 % (0.0-2.0) Nucleated Red Blood Cells % 0.0 /100WBC (0.0-0.0) Immature Granulocytes # 0.030 10^3/ul (0.0-0.031) Neutrophils # 3.8 10^3/ul (1.6-7.5) Lymphocytes # 2.5 10^3/ul (0.8-2.9) Monocytes # 0.7 10^3/ul (0.3-0.9) Eosinophils # 0.1 10^3/ul (0.0-0.5) Basophils # 0.0 10^3/ul (0.0-0.1) Nucleated Red Blood Cells # 0.0 10^3/ul (0.0-0.0) Prothrombin Time 12.9 Sec (11.9-14.9) Prothrombin Time Ratio 1.0 INR International 0.96 Normalized Ratio Sodium Level 142 mmol/L (135-144) Potassium Level 4.2 mmol/L (3.5-5.1) Chloride Level 104 mmol/L (97-110) Carbon Dioxide Level 30 mmol/L (21-31) Anion Gap 8 (5-13) Blood Urea Nitrogen 17 mg/dl (7-20) Creatinine 0.82 mg/dl (0.44-1.00) Est Glomerular Filtrat > 60 mL/min (>60) Rate mL/min Glucose Level 104 mg/dl (70-220) Calcium Level 9.4 mg/dl (8.4-10.2) Phosphorus Level 6.5 mg/dl (2.5-4.9) Magnesium Level 2.2 mg/dl (1.7-2.5) Triglycerides Level 242 mg/dl (0-149) Cholesterol Level 188 mg/dl (100-200) LDL Cholesterol, Calculated 86 mg/dl HDL Cholesterol 54 mg/dl (35-98) Cholesterol/HDL Ratio 3.4 RATIO DUC MILLS MD May 21, 2018 18:29
== END 2018-05-21 18:00 | disposition home or self-care (01) ==
LOC: E/R 17:08 → 6WM 05-20 01:43
PROVIDERS: ADMIT Internal Medicine; ATTEND Internal Medicine
DX: R07.9 Chest pain, unspecified (principal); I20.9 Angina pectoris, unspecified; R06.09 Other forms of dyspnea; I10 Essential (primary) hypertension; E03.9 Hypothyroidism, unspecified; Z79.82 Long term (current) use of aspirin
CPT/HCPCS: 36415; 71045; 78452; 80048; 80053; 80061; 82550; 82553; 82962; 83036; 83735; 83880; 84100; 84443; 84484; 85025; 85610; 93005; 93017; 93306; 99285; A9500; A9505; G0378; J1644; J2785